=== PATIENT | female | born 1945 | race Caucasian/White ===

== ENCOUNTER → 2021-08-09 | Outpatient (CLI) | payer OTHER | LOC: KOH-I 09:31 | DX: R22.2 Localized swelling, mass and lump, trunk (principal) | CPT/HCPCS: 71046 ==

== ENCOUNTER → 2021-11-08 | Outpatient (CLI) | payer OTHER | LOC: KOH-I 13:04 | DX: M79.604 Pain in right leg (principal); M13.861 Other specified arthritis, right knee | CPT/HCPCS: 73562; 93971 ==